=== PATIENT | male | born 1995 | race African-American/Black ===

== ENCOUNTER 2019-03-06 16:46 | Emergency (ER) | payer BC ==
[~2019-03-06] VITALS: Ht 190.5 cm; Wt 91.2 kg
--- OUTSIDE RECORDS SUMMARY | 2019-03-06 16:49 | XMS REPORT | Summary of Care ---
Author Organization Unknown Address Unknown Phone Unavailable Encounter HQ Encntr_alijeff(FIN) [id number] Date(s): 02/02/15 - 02/02/15 [facility] [address] [address] [address]- [phone] Discharge Diagnosis: Ankle injury Discharge Disposition: Home Physician Attending: Nato Bonilla MD Vital Signs Most recent to 1 2 oldest [Reference Range]: Height 190.5 cm (02/02/15 8:05 PM) Temperature Oral 98.1 DegF 98.4 DegF [96.4-99.1 DegF] (02/02/15 11:06 PM) (02/02/15 8:05 PM) Blood Pressure 121/67 mmHg 135/69 mmHg [90-140/60-90 mmHg] (02/02/15 11:06 PM) (02/02/15 8:05 PM) Respiratory Rate 18 BRMIN 18 BRMIN [14-20 BRMIN] (02/02/15 11:06 PM) (02/02/15 8:05 PM) Peripheral Pulse 69 bpm 73 bpm Rate [60-100 bpm] (02/02/15 11:06 PM) (02/02/15 8:05 PM) Weight 82.727 kg (02/02/15 8:05 PM) Body Mass Index 22.8 m2 (02/02/15 8:05 PM) Problem List No data available for this section Allergies, Adverse Reactions, Alerts Substance Reaction Severity Status NKDA Active Medications No data available for this section Results No data available for this section Immunizations No data available for this section Procedures No data available for this section Social History Social History Type Response Smoking Status Never smoker; Exposure to Tobacco Smoke None; Cigarette Smoking Last 365 Days No; Reg Smoking Cessation Counseling No Assessment and Plan No data available for this section
--- OUTSIDE RECORDS SUMMARY | 2019-03-06 16:49 | XMS REPORT | Continuity of Care Document ---
Author Author [facility] Organization Interface Address Unknown Phone Unavailable Problems Problem Status Onset Date Classification Date Reported Comments Source N45.2 - ORCHITIS Active 10/24/2018 [facility] Discharge Diagnosis: Abdominal muscle strain 06/28/2016 07/01/2016 [facility] Discharge Diagnosis: Acute upper respiratory infection 06/28/2016 07/01/2016 [facility] Discharge Diagnosis: Nausea 06/28/2016 07/01/2016 [facility] ABDOMINAL PAIN Active 06/28/2016 [facility] Discharge Diagnosis: Ankle injury 02/02/2015 02/05/2015 [facility] ANKLE INJURY Active 02/02/2015 [facility] Medications Medication Details Route Status Patient Instructions Ordering Provider Order Date Source Ondansetron 4 MG Oral Tablet [Zofran] 4 mg=1 tab, PO, TID, X 1 day, # 3 tab, 0 Refill(s) No Longer Active 06/29/2016 [facility] Iohexol 98 mL, Route: IVP, Drug Form: SOLN, Dosing Weight 86.364, kg, ONCALL, STAT, Start date: 06/28/16 22:12:00 CDT, Duration: 1 doses or times, Dose=2.2ml/kg, Max aoeu=[id number] -- "To be infused by Radiology Staff ONLY" Inactive 06/29/2016 [facility] Iohexol 98 mL, Route: IVP, Drug Form: SOLN, Dosing Weight 86.364, kg, ONCALL, STAT, Start date: 06/28/16 21:49:00 CDT, Duration: 1 doses or times, Weight=75 - 94kg -- "To be infused by Radiology Staff ONLY" Inactive 06/29/2016 [facility] Ketorolac 15 mg, 1 mL, Route: IVP, Drug form: INJ, ONCE, Dosing Weight 86.364, kg, Priority: STAT, Start date: 06/28/16 21:07:00 CDT, Stop date: 06/28/16 21:07:00 CDTNotes: (Same as:Toradol) IV bolus must be given >15 seconds. Give IM administration slowly and deeply into the muscle. Not for use > 4 days. Inactive 06/29/2016 [facility] Ondansetron 4 mg, 2 mL, Route: IVP, Drug form: INJ, ONCE, Dosing Weight 86.364, kg, Priority: STAT, Start date: 06/28/16 21:07:00 CDT, Stop date: 06/28/16 21:07:00 CDTNotes: (Same as: Zofran) MEDICATION WASTE Product Size: 4 mg Product Wasted: ___ mg Inactive 06/29/2016 [facility] Calcium Chloride 0.0014 MEQ/ML / Potassium Chloride 0.004 MEQ/ML / Sodium Chloride 0.103 MEQ/ML / Sodium Lactate 0.028 MEQ/ML Injectable Solution 1,000 mL, Rate: 2,000 ml/hr, Infuse over: 30 minutes, Route: IV, Dosing Weight 86.364 kg, Total Volume: 1,000, Bolus infusion, Priority: STAT, Start date: 06/28/16 21:07:00 CDT, Duration: 1 doses or times, Stop date: 06/28/16 21:36:00 CDT Inactive 06/29/2016 [facility] Allergies, Adverse Reactions, Alerts Substance Category Reaction Severity Reaction type Status Date Reported Comments Source Immunizations Immunization Date Given Site Status Last Updated Comments Source Results Order Name Results Value Reference Range Date Interpretation Comments Source Scrotal/Testicle US Scrotal/Testicle US PROCEDURE: SCROTAL ULTRASOUND INDICATION: Orchitis COMPARISON: None. TECHNIQUE: Sonographic evaluation of the scrotum and testes was performed using high resolution B-mode imaging, pulse and color Doppler imaging. FINDINGS: TESTES: The right testicle measures 47 x 22 x 29 mm The left testicle measures 53 x 20 x 29 mm The testes are normal in contour, morphology and echogenicity. There are no testicular masses. Single punctate calcification each testicle. Blood flow is normal and symmetrical. EPIDIDYMIDES: Normal. SCROTUM: Minimal left hydrocele IMPRESSION: Trace left hydrocele otherwise unremarkable SL: [id number] 10/24/2018 - - Read by: Jack Metcalf MD Dictated Date/time: 10/24/18 16:52 Electronically Signed by: Jack Metcalf MD 10/24/18 16:[address] [facility] URINE AND STOOL UA Ketones Negative *NA* (06/28/16 10:50 PM) Negative 06/29/2016 [facility] URINE AND STOOL UA Glucose Negative (06/28/16 10:50 PM) Negative 06/29/2016 [facility] URINE AND STOOL UA Protein Negative (06/28/16 10:50 PM) Negative 06/29/2016 [facility] URINE AND STOOL UA pH 7.0 5.0 - 8.0 06/29/2016 [facility] URINE AND STOOL UA Spec Grav 1.045 <=1.030 06/29/2016 [facility] URINE AND STOOL UA Turbidity Clear (06/28/16 10:50 PM) Clear 06/29/2016 [facility] URINE AND STOOL UA Color Yellow *NA* (06/28/16 10:50 PM) Yellow 06/29/2016 [facility] URINE AND STOOL UA Leuk Est Negative (06/28/16 10:50 PM) Negative 06/29/2016 [facility] URINE AND STOOL UA Nitrite Negative (06/28/16 10:50 PM) Negative 06/29/2016 [facility] URINE AND STOOL UA Urobilinogen 1.0 EU/dL 0.1 - 1.0 06/29/2016 [facility] URINE AND STOOL UA Blood Negative (06/28/16 10:50 PM) Negative 06/29/2016 [facility] URINE AND STOOL UA Bili Negative *NA* (06/28/16 10:50 PM) Negative 06/29/2016 [facility] URINE AND STOOL UA WBC 11-20 /HPF None Seen /HPF 06/29/2016 [facility] URINE AND STOOL UA RBC 3-5 /HPF 0 - 2 06/29/2016 [facility] URINE AND STOOL UA Sq Epi Rare /LPF Few /LPF 06/29/2016 [facility] URINE AND STOOL UA Amorph Jennifer Few /HPF None Seen /HPF 06/29/2016 [facility] URINE AND STOOL UA Bacteria Occasional /HPF None Seen /HPF 06/29/2016 [facility] CHEM PANEL Lipase Lvl 124 unit/L 73 - 393 06/29/2016 [facility] CHEM PANEL eGFR 89 mL/min/1.73m2 06/29/2016 Result Comment: The eGFR is calculated using the CKD-EPI formula. In most young, healthy individuals the eGFR will be >90 mL/min/1.73m2. The eGFR declines with age. An eGFR of 60-89 may be normal in some populations, particularly the elderly, for whom the CKD-EPI formula has not been extensively validated. Use of the eGFR is not recommended in the following populations: Individuals with unstable creatinine concentrations, including patients and those with serious co-morbid conditions. Patients with extremes in muscle mass or diet. The data above are obtained from the National Kidney Disease Education Program (NKDEP) which additionally recommends that when the eGFR is used in patients with extremes of body mass index for purposes of drug dosing, the eGFR should be multiplied by the estimated BMI. [facility] CHEM PANEL Calcium Lvl 8.2 mg/dL 8.5 - 10.5 06/29/2016 [facility] CHEM PANEL CO2 25 meq/L 24 - 32 06/29/2016 [facility] CHEM PANEL Glucose Lvl 114 mg/dL 70 - 99 06/29/2016 [facility] CHEM PANEL Chloride Lvl 102 meq/L 95 - 109 06/29/2016 [facility] CHEM PANEL Sodium Lvl 137 meq/L 135 - 145 06/29/2016 [facility] CHEM PANEL BUN 11 mg/dL 7 - 22 06/29/2016 [facility] CHEM PANEL Potassium Lvl 3.6 meq/L 3.5 - 5.1 06/29/2016 [facility] CHEM PANEL Creatinine Lvl 1.31 mg/dL 0.50 - 1.40 06/29/2016 [facility] CHEM PANEL ALT 20 unit/L 0 - 65 06/29/2016 [facility] CHEM PANEL Albumin Lvl 3.7 g/dL 3.5 - 5.0 06/29/2016 [facility] CHEM PANEL Total Protein 7.3 g/dL 6.4 - 8.4 06/29/2016 [facility] CHEM PANEL AST 18 unit/L 0 - 37 06/29/2016 [facility] CHEM PANEL Bili Total 0.5 mg/dL 0.2 - 1.3 06/29/2016 [facility] CHEM PANEL Alk Phos 57 unit/L 39 - 136 06/29/2016 [facility] CHEM PANEL B/C Ratio 8 6 - 25 06/29/2016 [facility] CHEM PANEL AGAP 13.6 meq/L 10.0 - 20.0 06/29/2016 [facility] CHEM PANEL A/G Ratio 1.0 0.7 - 1.6 06/29/2016 [facility] CHEM PANEL Globulin 3.6 g/dL 2.7 - 4.2 06/29/2016 [facility] HEMATOLOGY MCH 30.9 pg 27.0 - 31.0 06/29/2016 [facility] HEMATOLOGY MCV 91.3 fL 80.0 - 94.0 06/29/2016 [facility] HEMATOLOGY Hgb 14.2 g/dL 14.0 - 18.0 06/29/2016 [facility] HEMATOLOGY Hct 41.9 % 42.0 - 54.0 06/29/2016 [facility] HEMATOLOGY Platelet 131 K/CMM 133 - 450 06/29/2016 [facility] HEMATOLOGY MPV 8.3 fL 7.4 - 10.4 06/29/2016 [facility] HEMATOLOGY RDW 12.8 % 11.5 - 14.5 06/29/2016 [facility] HEMATOLOGY MCHC 33.9 g/dL 32.0 - 36.0 06/29/2016 [facility] HEMATOLOGY WBC 7.7 K/CMM 3.7 - 10.4 06/29/2016 [facility] HEMATOLOGY RBC 4.59 M/CMM 4.70 - 6.10 06/29/2016 [facility] HEMATOLOGY Segs 69.7 % 45.0 - 75.0 06/29/2016 [facility] HEMATOLOGY Lymphocytes 11.6 % 20.0 - 40.0 06/29/2016 [facility] HEMATOLOGY Monocytes 18.1 % 2.0 - 12.0 06/29/2016 [facility] HEMATOLOGY Eosinophils 0.2 % 0.0 - 4.0 06/29/2016 [facility] HEMATOLOGY Basophils 0.4 % 0.0 - 1.0 06/29/2016 [facility] HEMATOLOGY Lymphocytes # 0.9 K/CMM 1.0 - 5.5 06/29/2016 [facility] HEMATOLOGY Monocytes # 1.4 K/CMM 0.0 - 0.8 06/29/2016 [facility] HEMATOLOGY Segs-Bands # 5.4 K/CMM 1.5 - 8.1 06/29/2016 [facility] ED Abdomen/Pelvis IV contrast only CT ED Abdomen/Pelvis IV contrast only CT EXAM: CT ABDOMEN AND PELVIS WITH CONTRAST DATE: 06/28/2016 2200 hours INDICATION: Acute abdominal pain ADDITIONAL INFORMATION: 1 day history of right lower quadrant abdominal pain COMPARISON: None. TECHNIQUE: Volumetric CT acquisition of the abdomen and pelvis after the intravenous administration contrast. Axial, coronal and sagittal reconstructions. Postcontrast phases: Venous and delayed. IV contrast: 98 mL of Omnipaque 350 Enteric contrast: None. DLP: 1477 mGy-cm FINDINGS: Lines, tubes and hardware: None. Lower thorax: Minimal subsegmental atelectasis in the lung bases. Liver: Normal. Biliary tree: No intra- or extrahepatic biliary ductal dilation. Gallbladder: Normal. No CT evidence of gallstones. Pancreas: Normal. Spleen: Normal. Adrenals: Normal. Kidneys and ureters: The kidneys enhance symmetrically without perinephric stranding. No stones or hydronephrosis. No cystic or solid renal lesions. Contrast opacifies the bilateral renal collecting systems in the delayed phase. No hydroureter. Bladder: Normal. Reproductive organs: No CT abnormality. Gastrointestinal tract: Normal caliber. Appendix: Appendix is not well visualized however there is no fluid collection in the lower abdomen. Peritoneum, mesentery and retroperitoneum: Normal. No free air, ascites or loculated fluid. Lymph nodes: Normal. Vasculature: Normal. Bones: No acute abnormality. Soft tissues: Normal. IMPRESSION: 1. No acute abnormality in the abdomen or pelvis. 2. No bowel obstruction. 06/28/2016 - - This report was dictated by a Singing Waiter Or Waitress/Fellow. I have personally reviewed the images as well as the Resident's interpretation and agree with the findings. Read by: Bartolo Restrepo MD Resident: Bartolo Restrepo MD Dictated Date/time: 06/29/16 07:54 Electronically Signed by: Faizan Frank MD 06/29/16 10:56 FINAL REPORT [facility] Vital Signs Vital Sign Value Date Comments Source Heart Rate 82 06/29/2016 [facility] Temperature Oral (F) 98.9 F 06/29/2016 [facility] Systolic (mm Hg) 124 06/29/2016 [facility] Diastolic (mm Hg) 58 06/29/2016 [facility] Temperature Oral (F) 98.2 F 06/29/2016 [facility] Weight 86.364 06/29/2016 [facility] BMI Calculated 24.12 06/29/2016 [facility] Height 189.23 cm 06/29/2016 [facility] Systolic (mm Hg) 145 06/29/2016 [facility] Diastolic (mm Hg) 78 06/29/2016 [facility] Heart Rate 107 06/29/2016 [facility] Respitory Rate 16 06/29/2016 [facility] Heart Rate 69 02/03/2015 [facility] Respitory Rate 18 02/03/2015 [facility] Systolic (mm Hg) 121 02/03/2015 [facility] Diastolic (mm Hg) 67 02/03/2015 [facility] Temperature Oral (F) 98.1 F 02/03/2015 [facility] Height 190.5 cm 02/03/2015 [facility] BMI Calculated 22.8 02/03/2015 [facility] Weight 82.727 02/03/2015 [facility] Temperature Oral (F) 98.4 F 02/03/2015 [facility] Respitory Rate 18 02/03/2015 [facility] Heart Rate 73 02/03/2015 [facility] Systolic (mm Hg) 135 02/03/2015 [facility] Diastolic (mm Hg) 69 02/03/2015 [facility] Encounters Location Location Details Encounter Type Encounter Number Reason For Visit Attending Provider ADM Date DC Date Status Source [facility] [id number] Nato Bonilla 02/03/2015 02/03/2015 [facility] [id number] Hossein Kim 06/29/2016 06/29/2016 [facility] [place] [facility] [id number] Lucas Ugarteo 10/24/2018 10/25/2018 [facility] [place] Procedures Procedure Code Date Perfomer Comments Source
--- OUTSIDE RECORDS SUMMARY | 2019-03-06 16:49 | XMS REPORT | Summary of Care ---
Author Author [facility] Organization [facility] Address Unknown Phone Unavailable Encounter SKYLER Otero(SRAVANI) [id number] Date(s): 06/28/16 - 06/28/16 [facility] [address] [facility] provided by [facility] [employer] [facility] [place] [address]- Discharge Diagnosis: Abdominal muscle strain Discharge Diagnosis: Acute upper respiratory infection Discharge Diagnosis: Nausea Discharge Disposition: Home or Self Care Attending Physician: Hossein Kim MD Vital Signs Most recent to 1 2 oldest [Reference Range]: Height 189.23 cm (06/28/16 8:43 PM) Temperature Oral 98.9 DegF 98.2 DegF [96.4-99.1 DegF] (06/28/16 11:12 PM) (06/28/16 8:43 PM) Blood Pressure 124/58 mmHg 145/78 mmHg [90-140/60-90 mmHg] (06/28/16 11:12 PM) *HI* (06/28/16 8:43 PM) Respiratory Rate 16 BRMIN [14-20 BRMIN] (06/28/16 8:43 PM) Peripheral Pulse 82 bpm 107 bpm Rate [60-100 bpm] (06/28/16 11:12 PM) *HI* (06/28/16 8:43 PM) Weight 86.364 kg (06/28/16 8:43 PM) Body Mass Index 24.12 m2 (06/28/16 8:43 PM) Problem List No data available for this section Allergies, Adverse Reactions, Alerts Substance Reaction Severity Status NKDA Active Medications ketOROLAC 15 mg, 1 mL, Route: IVP, Drug form: INJ, ONCE, Dosing Weight 86.364, kg, Priorit y: STAT, Start date: 06/28/16 21:07:00 CDT, Stop date: 06/28/16 21:07:00 CDT Notes: (Same as:Toradol) IV bolus must be given >15 seconds. Give IM administration slowly and deeply into the muscle. Not for use > 4 days. Start Date: 06/28/16 Stop Date: 06/28/16 Status: Completed Lactated Ringers 1,000 mL 1,000 mL, Rate: 2,000 ml/hr, Infuse over: 30 minutes, Route: IV, Dosing Weight 8 6.364 kg, Total Volume: 1,000, Bolus infusion, Priority: STAT, Start date: 06/28 21:07:00 CDT, Duration: 1 doses or times, Stop date: 06/28/16 21:36:00 CDT Start Date: 06/28/16 Stop Date: 06/28/16 Status: Completed Omnipaque 350mg/ml 98 mL, Route: IVP, Drug Form: SOLN, Dosing Weight 86.364, kg, ONCALL, STAT, Star t date: 06/28/16 21:49:00 CDT, Duration: 1 doses or times, Weight=75 - 94kg -- " To be infused by Radiology Staff ONLY" Start Date: 06/28/16 Stop Date: 06/28/16 Status: Completed Omnipaque 350mg/ml 98 mL, Route: IVP, Drug Form: SOLN, Dosing Weight 86.364, kg, ONCALL, STAT, Star t date: 06/28/16 22:12:00 CDT, Duration: 1 doses or times, Dose=2.2ml/kg, Max d bbm=158ir -- "To be infused by Radiology Staff ONLY" Start Date: 06/28/16 Stop Date: 06/28/16 Status: Discontinued ondansetron 4 mg, 2 mL, Route: IVP, Drug form: INJ, ONCE, Dosing Weight 86.364, kg, Priority : STAT, Start date: 06/28/16 21:07:00 CDT, Stop date: 06/28/16 21:07:00 CDT Notes: (Same as: Zofran) MEDICATION WASTE Product Size: 4 mgProduct Was zuleyka: ___ mg Start Date: 06/28/16 Stop Date: 06/28/16 Status: Completed Zofran 4 mg oral tablet 4 mg=1 tab, PO, TID, X 1 day, # 3 tab, 0 Refill(s) Start Date: 06/28/16 Stop Date: 06/29/16 Status: Completed Results ELECTROLYTES Most recent to 1 oldest [Reference Range]: Sodium Lvl [135-145 137 mEq/L mEq/L] (06/28/16 9:19 PM) Potassium Lvl 3.6 mEq/L [3.5-5.1 mEq/L] (06/28/16 9:19 PM) Chloride Lvl [95-109 102 mEq/L mEq/L] (06/28/16 9:19 PM) CO2 [24-32 mEq/L] 25 mEq/L (06/28/16:19 PM) AGAP [10.0-20.0 13.6 mEq/L mEq/L] (06/28/16:19 PM) CHEM PANEL Most recent to 1 oldest [Reference Range]: Creatinine Lvl 1.31 mg/dL [0.50-1.40 mg/dL] (06/28/16:19 PM) eGFR 89 mL/min/1.73m2 1 *NA* (06/28/16:19 PM) BUN [7-22 mg/dL] 11 mg/dL (06/28/16 9:19 PM) B/C Ratio [6-25] 8 (06/28/16:19 PM) Glucose Lvl [70-99 114 mg/dL mg/dL] *HI* (06/28/16 9:19 PM) Total Protein 7.3 g/dL [6.4-8.4 g/dL] (06/28/16:19 PM) Albumin Lvl [3.5-5.0 3.7 g/dL g/dL] (06/28/16 9:19 PM) Globulin [2.7-4.2 3.6 g/dL g/dL] (06/28/16 9:19 PM) A/G Ratio [0.7-1.6] 1.0 (06/28/16 9:19 PM) Calcium Lvl 8.2 mg/dL [8.5-10.5 mg/dL] *LOW* (06/28/16 9:19 PM) ALT [0-65 unit/L] 20 unit/L (06/28/16 9:19 PM) AST [0-37 unit/L] 18 unit/L (06/28/16 9:19 PM) Alk Phos [39-136 57 unit/L unit/L] (06/28/16 9:19 PM) Bili Total [0.2-1.3 0.5 mg/dL mg/dL] (06/28/16 9:19 PM) Lipase Lvl [73-393 124 unit/L unit/L] (06/28/16 9:19 PM) 1Result Comment: The eGFR is calculated using the [...] from the National Kidney Disease Education Program ( NKDEP) which additionally recommends that when the eGFR is used in patients with extremes of body mass index for purposes of drug dosing, the eGFR should be mul tiplied by the estimated BMI. URINE AND STOOL Most recent to 1 oldest [Reference Range]: UA Turbidity [Clear] Clear (06/28/16 10:50 PM) UA Color [Yellow] Yellow *NA* (06/28/16 10:50 PM) UA pH [5.0-8.0] 7.0 (06/28/16 10:50 PM) UA Spec Grav 1.045 [<=1.030] *HI* (06/28/16 10:50 PM) UA Glucose Negative [Negative] (06/28/16 10:50 PM) UA Blood [Negative] Negative (06/28/16 10:50 PM) UA Ketones Negative [Negative] *NA* (06/28/16 10:50 PM) UA Protein Negative [Negative] (06/28/16 10:50 PM) UA Urobilinogen 1.0 EU/dL [0.1-1.0 EU/dL] (06/28/16 10:50 PM) UA Bili [Negative] Negative *NA* (06/28/16 10:50 PM) UA Leuk Est Negative [Negative] (06/28/16 10:50 PM) UA Nitrite Negative [Negative] (06/28/16 10:50 PM) UA WBC [None Seen 11-20 /HPF /HPF] *ABN* (06/28/16 10:50 PM) UA RBC [0-2 /HPF] 3-5 /HPF *ABN* (06/28/16 10:50 PM) UA Bacteria [None Occasional /HPF Seen /HPF] (06/28/16 10:50 PM) UA Sq Epi [Few /LPF] Rare /LPF (06/28/16 10:50 PM) UA Amorph Jennifer [None Few /HPF Seen /HPF] *ABN* (06/28/16 10:50 PM) HEMATOLOGY Most recent to 1 oldest [Reference Range]: WBC [3.7-10.4 K/CMM] 7.7 K/CMM (06/28/16 9:19 PM) RBC [4.70-6.10 4.59 M/CMM M/CMM] *LOW* (06/28/16 9:19 PM) Hgb [14.0-18.0 g/dL] 14.2 g/dL (06/28/16 9:19 PM) Hct [42.0-54.0 %] 41.9 % *LOW* (06/28/16 9:19 PM) MCV [80.0-94.0 fL] 91.3 fL (06/28/16 9:19 PM) MCH [27.0-31.0 pg] 30.9 pg (06/28/16 9:19 PM) MCHC [32.0-36.0 33.9 g/dL g/dL] (06/28/16 9:19 PM) RDW [11.5-14.5 %] 12.8 % (06/28/16 9:19 PM) Platelet [133-450 131 K/CMM K/CMM] *LOW* (06/28/16 9:19 PM) MPV [7.4-10.4 fL] 8.3 fL (06/28/16 9:19 PM) Segs [45.0-75.0 %] 69.7 % (06/28/16 9:19 PM) Lymphocytes 11.6 % [20.0-40.0 %] *LOW* (06/28/16 9:19 PM) Monocytes [2.0-12.0 18.1 % %] *HI* (06/28/16 9:19 PM) Eosinophils [0.0-4.0 0.2 % %] (06/28/16 9:19 PM) Basophils [0.0-1.0 0.4 % %] (06/28/16 9:19 PM) Segs-Bands # 5.4 K/CMM [1.5-8.1 K/CMM] (06/28/16 9:19 PM) Lymphocytes # 0.9 K/CMM [1.0-5.5 K/CMM] *LOW* (06/28/16 9:19 PM) Monocytes # [0.0-0.8 1.4 K/CMM K/CMM] *HI* (06/28/16 9:19 PM) Immunizations No data available for this section Procedures No data available for this section Social History Social History Type Response Smoking Status Never smoker; Exposure to Tobacco Smoke None; Cigarette Smoking Last 365 Days No; Reg Smoking Cessation Counseling No Assessment and Plan No data available for this section
--- OUTSIDE RECORDS SUMMARY | 2019-03-06 16:49 | XMS REPORT | Summary of Care ---
Author Author [facility] [place] Organization [facility] [place] Address Unknown Phone Unavailable Encounter HQ Encntr_alias(FIN) [id number] Date(s): 10/24/18 - 10/24/18 [facility] [place] [address] [place] [phone] Discharge Disposition: Home or Self Care Attending Physician: Lucas Mesa MD Referring Physician: Lucas Msea MD Vital Signs No data available for this section Problem List No data available for this [...] Days No; Reg Smoking Cessation Counseling No entered on: 06/28/16 Assessment and Plan No data available for this section
[2019-03-06] MEDS ORDERED: SODIUM CHLORIDE 0.9% 1000ML 1,000 ML IV STA (17:00)
[2019-03-06 17:19] LABS: BASOPHILS % 0.3 % (0.0-1.0); EOSINOPHILS # (AUTO) 0.1 (0.0-0.4); EOSINOPHILS % 0.7 % (0.0-6.0); HEMOGLOBIN 16.1 g/dL (14.0-18.0); LYMPHOCYTES # (AUTO) 2.4 (1.0-3.2); LYMPHOCYTES % 33.3 % (18.0-39.1); MEAN CORPUSCULAR HEMOGLOBIN 31.5 pg (28-32); MONOCYTES # (AUTO) 0.8 (0.2-0.8); MONOCYTES % 10.4 % (4.4-11.3); PLATELET COUNT 198 x10e3/uL (140-360); RED BLOOD COUNT 5.11 x10e6/uL (4.3-5.7); RED CELL DISTRIBUTION WIDTH 11.5 % (11.7-14.4)
[2019-03-06 17:33] LABS: ALANINE AMINOTRANSFERASE 19 IU/L (0-55); ALBUMIN 4.4 g/dL (3.5-5.0); ALBUMIN/GLOBULIN RATIO 1.2 (0.8-2.0); ALKALINE PHOSPHATASE 52 IU/L (40-150); ANION GAP 14.5 mmol/L (8-16); BLOOD UREA NITROGEN 11 mg/dL (7-26); BUN/CREATININE RATIO 9 (6-25); CALCIUM 9.6 mg/dL (8.4-10.2); CARBON DIOXIDE 25 mmol/L (22-29); CHLORIDE 100 mmol/L (98-107); CREATINE KINASE 199 IU/L (30-200); CREATININE, SERUM 1.18 mg/dL (0.72-1.25); EST GLOMERULAR FILTRATION RATE > 60 ML/MIN (60-); GLUCOSE 91 mg/dL (74-118); MAGNESIUM 2.1 MG/DL (1.3-2.1); POTASSIUM 3.5 mmol/L (3.5-5.1); SODIUM 136 mmol/L (136-145)
--- NOTE | 2019-03-06 17:39 | Diagnostic Imaging Report ---
History: Weakness, numbness, dizziness Comparison studies: None Technique: Axial images were obtained from the skull base to the vertex. Coronal and sagittal reconstructions obtained from the axial data. Dose modulation, iterative reconstruction, and/or weight based adjustment of the mA/kV was utilized to reduce the radiation dose to as low as reasonably achievable. Intravenous contrast: None Findings: Scalp/skull: No abnormalities. No fractures, blastic or lytic lesions. Extra-axial spaces: No masses. No fluid collections. Brain sulci: Appropriate for age. Ventricles: Normal in size and configuration. No hydrocephalus. Parenchyma: No abnormal densities. No masses, hemorrhage, acute or chronic cortical vascular insults. Sellar/suprasellar region: No abnormalities Craniocervical junction: Patent foramen magnum. No Chiari one malformation. IMPRESSION: No abnormalities. Signed by: Dr. Darren Pierre M.D. on 03/06/2019 5:35 PM
--- NOTE | 2019-03-06 17:51 | Diagnostic Imaging Report ---
EXAMINATION: CHEST SINGLE (PORTABLE) COMPARISON: None INDICATION: Dizziness, hypertension ^WEAK/NUMB ^[id number] ^1720 DISCUSSION: Frontal view of the chest obtained at 1723 hours. HEART AND MEDIASTINUM: The cardiomediastinal silhouette is unremarkable. LINES: None. LUNGS: The lungs are well inflated and clear. No pneumonia or pulmonary edema. PLEURA: No pleural effusion or pneumothorax. BONES AND SOFT TISSUES: No focal osseous lesion. The soft tissues are normal. IMPRESSION: No acute cardiopulmonary disease. Signed by: Dr. Sesar Wu MD on 03/06/2019 5:48 PM
[2019-03-06 17:53] LABS: THYROID STIMULATING HORMONE 1.057 uIU/mL (0.350-4.940)
[2019-03-06 17:54] LABS: BILIRUBIN,URINE NEGATIVE (NEGATIVE); CLARITY,URINE CLEAR (CLEAR); COLOR,URINE YELLOW (YELLOW); KETONES,URINE NEGATIVE (NEGATIVE); LEUKOCYTE ESTERASE ,URINE NEGATIVE (NEGATIVE); NITRITE,URINE NEGATIVE (NEGATIVE); PROTEIN,URINE DIPSTICK NEGATIVE (NEGATIVE); URINE UROBILINOGEN 1 mg/dL (0.2 - 1)
[2019-03-06 17:56] LABS: AMPHETAMINES SCREEN,URINE POSITIVE (NEGATIVE); BENZODIAZEPINES SCREEN,URINE NEGATIVE (NEGATIVE); PHENCYCLIDINE SCREEN,URINE NEGATIVE (NEGATIVE)
[2019-03-06 18:06] LABS: BACTERIA,URINE FEW /HPF; EPITHELIAL CELLS,URINE FEW /LPF; MUCUS,URINE MODERATE (RARE); WBC,URINE (MAN) 0-5 /HPF (0-5)
== END 2019-03-06 19:37 | disposition home or self-care (01) ==
LOC: ER 16:46
DX: R20.2 Paresthesia of skin (principal); F90.9 Attention-deficit hyperactivity disorder, unspecified type
CPT/HCPCS: 36415; 70450; 71045; 80053; 80307; 81001; 82550; 82553; 83735; 84443; 84484; 85025; 93005; 99284; J7030